=== PATIENT | female | born 1985 | race Caucasian/White ===

== ENCOUNTER 2017-02-02 00:19 | Emergency (ER) | payer OTHER ==
[~2017-02-02] VITALS: Ht 167.6 cm; Wt 77.3 kg
[~2017-02-02 00:19] MED LIST: CIPR500T4 PO
[2017-02-02 00:30] VITALS: Ht 167.6 cm; Wt 77.3 kg
--- NOTE | 2017-02-02 00:30 | ERA ---
ER Documentation Chief Complaint Date/Time DATE: 02/02/17 TIME: 00:30 Chief Complaint Abdominal pain HPI The patient is a 32-year-old female, presenting to the ER because of abdominal pain that began a few hours ago. The abdominal pain is localized at the suprapubic area. She recently found down that she is . She denies fever, chills, syncope, chest pain, vomiting, dysuria, diarrhea, vaginal bleeding. She does not smoke or drink ROS All systems reviewed and are negative except as per history of present illness. Medications Home Meds Active Scripts Acetaminophen* (Tylenol*) 325 Mg Tablet, 2 TAB PO Q6 Y for PAIN AND OR ELEVATED TEMP, #20 TAB Prov:CORNELL PUENTES MD 02/02/17 Cephalexin* (Keflex*) 500 Mg Capsule, 500 MG PO QID for 10 Days, CAP Prov:CORNELL PUENTES MD 02/02/17 Reported Medications Acetaminophen* (Acetaminophen*) 500 MG Extra Strength Tablet, 1000 MG PO Q6H Y for PAIN AND OR ELEVATED TEMP, TAB 02/02/17 Discontinued Scripts Ciprofloxacin Hcl* (Ciprofloxacin Hcl*) 500 Mg Tablet, 500 MG PO BID for 10 Days , TAB Prov:TOBY HALL PA-C 07/31/16 Allergies Allergies: Coded Allergies: No Known Allergy (Unverified , 02/02/17) PMhx/Soc Hx Alcohol Use: No Hx Substance Use: No Hx Tobacco Use: No Physical Exam Vitals Vital Signs Date Time Temp Pulse Resp B/P Pulse Ox O2 Delivery O2 Flow Rate FiO2 02/02/17 03:23 83 18 120/64 100 Room Air 02/02/17 02:35 98.3 65 14 126/79 100 Room Air 02/02/17 02:00 76 20 107/74 100 Room Air 02/02/17 01:34 91 17 113/69 99 Room Air 02/02/17 00:30 97.5 88 18 158/86 96 Physical Exam Const: No acute distress. Head: Atraumatic. Eyes: Normal Conjunctiva. ENT: Normal External Ears, Nose and Mouth. Neck: Full range of motion. No meningismus. Resp: Clear to auscultation bilaterally. Cardio: Regular rate and rhythm, no murmurs. Abd: Soft, non distended, normal bowel sounds, moderate suprapubic tenderness, no right lower quadrant, right upper quadrant, epigastric, CVA tenderness Skin: No petechiae or rashes. Back: No midline or flank tenderness. Ext: No cyanosis, or edema. Neur: Awake and alert. No focal deficit Psych: Normal Mood and Affect. Result Diagram: 02/02/17 0045 02/02/17 0045 Results 24 hrs Laboratory Tests Test 02/02/17 00:45 02/02/17 01:55 White Blood Count 14.110^3/ul Red Blood Count 4.2210^6/ul Hemoglobin 13.3g/dl Hematocrit 38.5% Mean Corpuscular Volume 91.2fl Mean Corpuscular Hemoglobin 31.5pg Mean Corpuscular Hemoglobin Concent 34.5g/dl Red Cell Distribution Width 12.0% Platelet Count 20561^3/UL Mean Platelet Volume 9.1fl Neutrophils % 77.1% Lymphocytes % 16.8% Monocytes % 4.5% Eosinophils % 0.9% Basophils % 0.4% Nucleated Red Blood Cells % 0.0/100WBC Neutrophils # 10.910^3/ul Lymphocytes # 2.410^3/ul Monocytes # 0.610^3/ul Eosinophils # 0.110^3/ul Basophils # 0.110^3/ul Nucleated Red Blood Cells # 0.010^3/ul Sodium Level 137mmol/L Potassium Level 3.8mmol/L Chloride Level 102mmol/L Carbon Dioxide Level 27mmol/L Anion Gap 12 Blood Urea Nitrogen 8mg/dl Creatinine 0.90mg/dl Glucose Level 127mg/dl Calcium Level 9.5mg/dl Total Bilirubin 0.3mg/dl Direct Bilirubin 0.00mg/dl Indirect Bilirubin 0.3mg/dl Aspartate Amino Transf (AST/SGOT) 24IU/L Alanine Aminotransferase (ALT/SGPT) 30IU/L Alkaline Phosphatase 58IU/L Total Protein 7.9g/dl Albumin 4.5g/dl Globulin 3.40g/dl Albumin/Globulin Ratio 1.32 Lipase 58U/L Beta HCG, Quantitative 1727.8mIU/ml Bedside Urine pH (LAB) 7.0 Bedside Urine Protein (LAB) Negative Bedside Urine Glucose (UA) Negative Bedside Urine Ketones (LAB) Negative Bedside Urine Blood 2+ Bedside Urine Nitrite (LAB) Negative Bedside Urine Leukocyte Esterase (L 2+ Current Medications Medications (Trade) Dose Ordered Sig/Janny Route PRN Reason Start Time Stop Time Status Last Admin Dose Admin Sodium Chloride (NS) 1,000 ml @ 1,000 mls/hr Q1H ONCE IV 02/02/17 01:00 02/02/17 01:59 DC 02/02/17 01:00 Morphine Sulfate (morphine) 4 mg ONCE STAT IV 02/02/17 00:54 02/02/17 00:56 DC 02/02/17 01:00 Ondansetron HCl (Zofran Inj) 4 mg ONCE STAT IV 02/02/17 00:54 02/02/17 00:56 DC 02/02/17 01:00 Morphine Sulfate 2 mg 2 mg ONCE ONCE IV 02/02/17 02:30 02/02/17 02:31 DC 02/02/17 02:36 Sodium Chloride 1,000 ml @ 1,000 mls/hr Q1H ONCE IV 02/02/17 02:30 02/02/17 03:29 DC 02/02/17 02:35 Ceftriaxone Sodium (Rocephin) 50 ml @ 100 mls/hr ONCE ONCE IVPB 02/02/17 02:30 02/02/17 02:59 DC 02/02/17 02:36 Procedures/[place] [id number] Radiology Main Line: [phone] DIAGNOSTIC IMAGING REPORT Patient: MU DAWSON : 1985 Age: 32 Sex: F MR #: [id number] DOS: 02/02/17 0030 Ordering MD: CORNELL PUENTES MD Location: E/R Room/Bed: PROCEDURE: US OB. CLINICAL INDICATION: . Vaginal bleeding. TECHNIQUE: Multiple sonographic images of the pelvis were obtained. Transabdominal and transvaginal views of the pelvis are available for review. The images were reviewed on a PACS workstation. COMPARISON: No prior studies are available for comparison. FINDINGS: An intrauterine probable early gestational sac at 4.7 mm is identified, correspond to 5 weeks 0 days size.. No pole or cardiac activity is detected. No subchorionic hemorrhage is identified. There is a 2.5 x 2 x 2.1 cm complex right ovarian cyst. The right ovary is otherwise unremarkable with vascular flow.. Left ovary was not visualized. There is no adnexal mass or free fluid. IMPRESSION: Intrauterine sac-like structure at 5 weeks size without pole or heart motion, likely represents an early intrauterine too small to identify a pole. No adnexal mass or free fluid to suggest ectopic . Complex/hemorrhagic right ovarian cyst. Left ovary not visualized. RPTAT: [facility]K .Cornell Johnson MD, MD Date Time Electronically viewed and signed by .Cornell Johnson MD, on 02/02/2017 02:56 .K/ CC: CORNELL PUENTES MD MEDICAL MAKING DECISION: The patient is a 32-year-old female, presenting with acute cystitis, complex/hemorrhagic right ovarian cyst, early . She was treated with 2 L normal saline for acute dehydration, morphine 4 mg IV then 2 mg IV for pain and Zofran 4 mg IV 2 for now nausea and Rocephin 1 g IV for acute cystitis with good response The differential diagnoses considered include but are not limited to threatened/ incomplete/inevitable/complete , ectopic , non- related bleeding, PID, ovarian torsion. Departure Diagnosis: Primary Impression: UTI (urinary tract infection) Additional Impressions: at early stage Hemorrhagic cyst of ovary Condition: Good Comments She was discharged with Keflex and Tylenol I discussed the findings with the patient. I advised the patient to follow-up with her NEUROPHYSIOLOGIST physician in about 1-2 days, sooner if needed and return if any concern. The patient's blood pressure was elevated (>120/80) but appears stable without evidence of hypertension emergency or urgency. The patient was counseled about the risks of hypertension and urged to pursue outpatient monitoring and therapy within a week with their primary care physician. CORNELL PUENTES MD February 02, 2017 00:30
[2017-02-02] MEDS ORDERED: morphine 4 MG/ML VIAL IV STA (00:54)
[2017-02-02] MEDS ORDERED: ONDANSETRON 4 MG INJ IV STA (00:54)
[2017-02-02] MEDS ORDERED: SOD CHLORIDE 0.9% 1,000 ML IV ONE ×2 (01:00→02:30)
[2017-02-02 01:07] LABS: ADD SCAN DIFF NO
[2017-02-02 01:10] LABS: BASOPHIL # 0.1 10^3/ul (0.0-0.1); BASOPHILS % 0.4 % (0.0-2.0); EOSINOPHILS # 0.1 10^3/ul (0.0-0.5); EOSINOPHILS % 0.9 % (0.0-7.0); HEMATOCRIT 38.5 % (37.0-47.0); HEMOGLOBIN 13.3 g/dl (12.0-16.0); LYMPHOCYTES # 2.4 10^3/ul (0.8-2.9); LYMPHOCYTES % 16.8 % (15.0-51.0); MEAN CORPUSCULAR HEMOGLOBIN 31.5 pg (29.0-33.0); MEAN CORPUSCULAR HGB CONC 34.5 g/dl (32.0-37.0); MEAN CORPUSCULAR VOLUME 91.2 fl (82.0-101.0); MEAN PLATELET VOLUME 9.1 fl (7.4-10.4); MONOCYTE # 0.6 10^3/ul (0.3-0.9); MONOCYTES % 4.5 % (0.0-11.0); NEUTROPHIL # 10.9 10^3/ul (1.6-7.5); NEUTROPHILS % 77.1 % (39.0-77.0); PLATELET COUNT 356 10^3/UL (140-415); RED BLOOD COUNT 4.22 10^6/ul (4.20-5.40); WHITE BLOOD COUNT 14.1 10^3/ul (4.8-10.8)
[2017-02-02] MEDS ORDERED: ACET-141 PO (01:16)
[2017-02-02 01:32] LABS: ALBUMIN 4.5 g/dl (3.3-4.9); ALBUMIN/GLOBULIN RATIO 1.32; BILIRUBIN,INDIRECT 0.3 mg/dl (0-1.1); BILIRUBIN,TOTAL 0.3 mg/dl (0.2-1.3); CALCIUM 9.5 mg/dl (8.4-10.2); CREATININE 0.9 mg/dl (0.44-1.00); POTASSIUM 3.8 mmol/L (3.5-5.1); TOTAL PROTEIN 7.9 g/dl (6.1-8.1)
[2017-02-02 01:54] LABS: URINE BLOOD (Dip) POC 2+ (NEGATIVE)
[2017-02-02] MEDS ORDERED: morphine 2 MG INJ IV ONE (02:30)
[2017-02-02] MEDS ORDERED: CEFTRIAXONE 1 GM/50 ML (PMX) 50 ML IVPB ONE (02:30)
--- NOTE | 2017-02-02 02:56 | RADRPT ---
PROCEDURE: US OB. CLINICAL INDICATION: . Vaginal bleeding. TECHNIQUE: Multiple sonographic images of the pelvis were obtained. Transabdominal and transvagin al views of the pelvis are available for review. The images were reviewed on a PACS workstation. COMPARISON: No prior studies are available for comparison. FINDINGS: An intrauterine probable early gestational sac at 4.7 mm is identified, correspond to 5 weeks 0 days size.. No pole or cardiac activity is detected. No subchorionic hemorrhage is identified. There is a 2.5 x 2 x 2.1 cm complex right ovarian cyst. The right ovary is otherwise unremarkable w ith vascular flow.. Left ovary was not visualized. There is no adnexal mass or free fluid. IMPRESSION: Intrauterine sac-like structure at 5 weeks size without pole or heart motion, likely represent s an early intrauterine too small to identify a pole. No adnexal mass or free fluid to suggest ectopic . Complex/hemorrhagic right ovarian cyst. Left ovary not visualized. RPTAT: [facility]K .Cornell Johnson MD, Date Time Electronically viewed and signed by .Cornell Johnson MD, on 02/02/2017 02:56 .K/
[2017-02-02] MEDS ORDERED: CEPH-443 PO (03:43)
[2017-02-02] MEDS ORDERED: ACET325T33 PO (03:43)
[2017-02-02 04:00] VITALS: BP 112/79; PULSE 75; RESP 17; TEMP 98.3
[2017-02-02] MEDS ORDERED: ACETAMINOPHEN 325 MG TAB PO ONE (04:30)
== END 2017-02-02 04:08 | disposition home or self-care (01) ==
LOC: E/R 00:19
DX: O23.41 Unspecified infection of urinary tract in pregnancy, first trimester (principal); O34.81 Maternal care for other abnormalities of pelvic organs, first trimester; R10.2 Pelvic and perineal pain; Z3A.01 Less than 8 weeks gestation of pregnancy
CPT/HCPCS: 36415; 76801; 76817; 80053; 81003; 83690; 84702; 85025; 86900; 86901; 96361; 96365; 96375; 96376; J0696; J2270; J2405; J7030; Z7502; Z7610